=== PATIENT | female | born 1960 | race Caucasian/White ===

== ENCOUNTER → 2016-05-11 | Outpatient (CLI) | payer OTHER ==
--- NOTE | 2016-05-11 07:37 | US ---
EXAMINATION TYPE: US gallbladder DATE OF EXAM: 05/11/2016 7:10 AM COMPARISON: NONE CLINICAL HISTORY: US. RUQ pain after eating, bloating EXAM MEASUREMENTS: Liver Length: 16.9cm Gallbladder Wall: 0.4cm CBD: 0.3cm Right Kidney: 10.4 x 3.3 x 4.1cm ANATOMY: Findings: Pancreas: appears heterogeneous/hypoechoic near head/uncinate process Liver: appears wnl Gallbladder: non-mobile hyperechoic area = 0.6cm, probable polyp Evidence for sonographic Trimble's sign: No CBD: wnl Right Kidney: No hydronephrosis or masses seen IMPRESSION: 1. Gallbladder polyp. 2. Decreased echogenicity at the level of the pancreatic head and uncinate process. Consider CT corre lation to exclude underlying lesion. Normal Values: Liver Length: < 16cm wnl, 17-18cm upper limits, >18cm enlarged Renal Length = 9 - 12cm GB Wall: < 0.3cm CBD: < 0.6cm or < 1.0cm post cholecystectomy
== END | disposition home or self-care (01) ==
LOC: RADUSWWP 06:46
PROVIDERS: ATTEND Family Medicine
DX: K82.4 Cholesterolosis of gallbladder (principal)
CPT/HCPCS: 76705

== ENCOUNTER → 2016-05-23 | Outpatient (CLI) | payer OTHER ==
--- NOTE | 2016-05-23 10:41 | CT ---
EXAMINATION TYPE: CT abdomen w con DATE OF EXAM: 05/23/2016 9:12 AM COMPARISON: Ultrasound 11 May 2016 HISTORY: Neoplasm of Pancreas CT DLP: 478.5 mGycm Automated exposure control for dose reduction was used. TECHNIQUE: Helical acquisition of images was performed from the lung bases through the top of iliac crest to include entire abdomen. CONTRAST: Performed with Oral Contrast and with IV Contrast, patient injected with 100 mL of Omnipaque 300. FINDINGS: LUNG BASES: No significant abnormality is appreciated. LIVER/GB: Nodular area of enhancement is present which shows centripetal progression over time within the right lobe of liver measuring approximately 3 cm compatible with hemangioma. Gallbladder is norm al. PANCREAS: No significant abnormality is seen. SPLEEN: No significant abnormality is seen. ADRENALS: No significant abnormality is seen. KIDNEYS: No significant abnormality is seen. BOWEL: No significant abnormality is seen. LYMPH NODES: No retroperitoneal adenopathy. OSSEOUS STRUCTURES: Degenerative disc changes in the visualized spine. FREE AIR: No Free Air visible ASCITES: None visible. OTHER: The appendix is normal IMPRESSION: NO SIGNIFICANT ABNORMALITIES EVIDENT. HEMANGIOMA WITHIN THE LIVER. Pancreas MRI may be of increased s ensitivity as indicated.
== END | disposition home or self-care (01) ==
LOC: RADCTMAIN 07:45
PROVIDERS: ATTEND Family Medicine
DX: D49.0 Neoplasm of unspecified behavior of digestive system (principal)
CPT/HCPCS: 74160; Q9967

== ENCOUNTER → 2016-07-20 | Outpatient (CLI) | payer OTHER ==
--- NOTE | 2016-07-20 08:59 | CT ---
EXAMINATION TYPE: CT iac w con DATE OF EXAM: 07/20/2016 8:46 AM COMPARISON: NONE HISTORY: Right facial numbness and hearing loss after ear infection CT DLP: 150.00 mGycm Automated exposure control for dose reduction was used. CONTRAST: CT scan of the IACs is performed with IV Contrast, patient injected with 100 ml mL of Omnipaque 300. FINDINGS: The external auditory canals are patent bilaterally. Mastoid air cells show some opacifica tion on the right without suspicious opacification on the left. The middle ear ossicles are symmetri c and unremarkable. There is no evidence of suspicious surrounding soft tissue density to suggest ch olesteatoma. The scutum is preserved bilaterally. The cochlea and the semicircular canals are symme tric and unremarkable. Vestibular aqueduct and internal carotid canal appear unremarkable. Temporom andibular joints are maintained bilaterally. IMPRESSION: Increased fluid signal right mastoid air cells is suggestive of persistent right-sided in fection or mastoiditis, clinical correlation advised.
== END | disposition home or self-care (01) ==
LOC: RADCTMAIN 08:23
PROVIDERS: ATTEND Otolaryngology
DX: H91.91 Unspecified hearing loss, right ear (principal); G51.8 Other disorders of facial nerve
CPT/HCPCS: 70481; Q9967

== ENCOUNTER → 2021-04-18 | Outpatient (CLI) | payer BC ==
[~2021-04-18] MED LIST: BAMLANIVIMAB (EUA) 700 MG, ETESEVIMAB (EUA) 1,400 MG in SODIUM CHLORIDE 0.9% 50 ML IVPB NR; SODIUM CHLORIDE 0.9% 50 ML IVPB NR; SODIUM CHLORIDE 0.9% 500 ML 500 ML in EMPTY BAG 1 BAG IV PRN
[2021-04-18 15:06] VITALS: RESP 16; TEMP 97.9
[2021-04-18 15:33] VITALS: BP 111/61; PULSE 69
== END ==
LOC: PROCWHC3 14:00
PROVIDERS: ATTEND Family Medicine
DX: U07.1 COVID-19 (principal); E66.9 Obesity, unspecified; Z68.30 Body mass index [BMI] 30.0-30.9, adult; Z91.030 Bee allergy status
CPT/HCPCS: 96360; J3490; M0243